=== PATIENT | female | born 1960 | race Caucasian/White ===

== ENCOUNTER 2018-07-30 14:55 | Outpatient (REF) | payer OTHER, SELFPAY ==
--- NOTE | 2018-07-30 14:10 | SKI_PTH ---
PATIENT: Christie Vincnet LOC: [facility] U#:[id number] AGE/SX: 58/F ROOM: RE07/30/[address]: Liz Vogel MD : 1960 BED: DIS: 07/30/2018 SPEC #: [id number] RECD: 07/30/18 17:47 STATUS: SHIRA REQ #: [id number] SELMA: 07/30/18 14:[address]: Liz Vogel DEPT: Surgical Specimen RECD BY: Priscilla Ruiz ENTERED: 07/30/18 17:48 SP TYPE: LOUANN ZEPEDA DR: Mei Schmidt MD, DC Tissues: 1 - SKIN CYST/TAG/DEBRIDEMENT Procedures: SKIN BIOPSY LEVEL 3 Comments: [id number]
== END 2018-07-30 15:15 ==
LOC: LBN 14:55
PROVIDERS: PCP Family Medicine; Visit Provider Surgery
DX: L72.11 Pilar cyst (principal)
CPT/HCPCS: 88304

== ENCOUNTER 2019-04-11 16:54 | Outpatient (REF) | payer OTHER, SELFPAY ==
--- NOTE | 2019-04-11 15:30 | PAPFT_PTH ---
PATIENT: Christie Vincent LOC: N U#:[id number] AGE/SX: 59/F ROOM: RE04/11/[address]: Mei Schmidt MD, DC : 1960 BED: DIS: 04/11/2019 SPEC #: [id number] RECD: 04/12/19 12:56 STATUS: SHIRA REQ #: [id number] SELMA: 04/11/19 15:[address]: Mei Schmidt DEPT: [facility] Cytology RECD BY: Priscilla Ruiz Tissues: 1 - CX/ENDOCX FOR PAP SMEARS Procedures: PAP THIN PREP/UVM Screening HPV DNA PROBE Comments: [id number]
== END 2019-04-11 17:14 ==
LOC: LBN 16:54
PROVIDERS: PCP Family Medicine; Visit Provider Family Medicine
DX: Z12.4 Encounter for screening for malignant neoplasm of cervix (principal)
CPT/HCPCS: 88142; 87624

== ENCOUNTER 2019-05-12 00:32 | Outpatient (CLI) | payer OTHER, SELFPAY ==
--- NOTE | 2019-05-12 07:45 | DI.MAMMO_ITS ---
EXAM: MAMMO SCREENING CLINICAL HISTORY: screening,Z12.39 TECHNIQUE: Mammograms were interpreted according to the usual protocol including computer analysis w [email or web address] CAD system, tomosynthesis and C-view imaging. FINDINGS: The breasts are heterogeneously dense with fairly symmetrical distribution of fibroglandular tissue. No dominant mass or clumped microcalcification is identified in either breast. Current examination is compared with previous examinations including June, and there has been no gross interval change in appearance in comparison with previous studies. IMPRESSION: No specific evidence of malignancy at this time. Routine screening examinations are suggested at year ly intervals due to the family history of breast carcinoma. Category 1. Breast density, category C. BI-RADS Cat 1 - Negative. Breast Density - Category C - Heterogeneously dense.
== END 2019-05-12 00:52 ==
PROVIDERS: PCP Family Medicine; Visit Provider Family Medicine
DX: Z12.31 Encounter for screening mammogram for malignant neoplasm of breast (principal); Z80.3 Family history of malignant neoplasm of breast
CPT/HCPCS: 77063; 77067

== ENCOUNTER 2019-06-06 06:00 | Day surgery (SDC) | payer OTHER, SELFPAY ==
[2019-05-30 10:54] VITALS: BP 140/88; PULSE 91; RESP 16; TEMP 36.1; O2SAT 100
--- NOTE | 2019-06-06 06:38 | W.PM.ENDDOP ---
Date of service: 06/06/19 Time of Service: 07: Endoscopy Report DATE OF PROCEDURE: 06/06/19 PRE-OP DIAGNOSIS: GERD, Colon CAncer Screening POST-OP DIAGNOSIS: other (GAstritis, GAstric polyps, colon polyps) PROCEDURE: 1. EGD with biopsies 2. Colonoscopy with polypectomy SURGEON: Liz Vogel ANESTHESIA: other (General/ ASA 2/ Talita Justino, [employer]) ESTIMATED BLOOD LOSS: 5 PATHOLOGY: other (GAstric bx, Gastric polyp bx, Ge junction bx, transverse colon polyp and descending colon polyp) COMPLICATIONS: None DISPOSITION: same day INDICATIONS: Mrs Vincent is a pleasant 59-year-old female who is here today to discuss a screening colonoscopy as well as a possible upper endoscopy. Her last colonoscopy was in 2009 and was normal. She denies any melena, hematochezia, unintentional weight loss, or changes in bowel habits. She states that she has intermittent diarrhea and constipation which is her normal. She sometimes can have a little bleeding from hemorrhoids but has not had that in a long time. She was diagnosed with reflux a couple years ago and placed on omeprazole 20 mg daily. Over the last 6 months she says her reflux symptoms have increased. She started on ranitidine at nighttime but with ranitidine being recalled she stopped that. She has had no emesis but does feel the acid come up into her throat. She also wonders if her asthma symptoms are due to reflux. Her asthma started at the same time as her reflux. Her asthma is worse in the morning and after eating. She has never had an upper endoscopy. She recently was on doxycycline for a dental issue. PREP: Miralax/Dulcolax PROCEDURE START TIME: :23 PROCEDURE END TIME: 07:59 COLONOSCOPY RETRACTION TIME: 16 minutes FINDINGS: 1- GAstritis and Gastric polyps (benign) 2. Colorectal polyps PROCEDURE DESCRIPTION: After informed consent was obtained the patient was take to the procedure room and placed in a supine position. Monitors were applied and a time out was done. The patients name, date of , procedure type, allergies to medications and metal in their body was reviewed. A bite block was placed and the patient was sedated. Once sedated and comfortable the gastroscope was advanced through the oropharynx which was grossly normal into the esophagus. The proximal and mid-esophagus were normal. In the distal esophagus there was mild inflammation noted. The scope was advanced into the stomach and through the pylorus into the 3rd portion of the duodenum. The duodenum was noted to be normal. The scope was retracted back into the stomach. There was mild to moderate inflammation noted. Biopsies were done to rule out H. pylori. There were no ulcers. The scope was retro-flexed. The cardia and fundus were noted to be normal. There was no hiatal hernia noted. There were many benign appearing polyps in the entire stomach. Random biopsies of a few of them were done. The scope was retracted back into the esophagus and biopsies were done of the GE junction to rule out Beauchamp's. The Z line was regular. The GE junction was at 35 cm. While the patient was still sedated they were placed in a left decubitous position. A rectal exam was done. External exam was normal. Internal exam revealed a normal sphincter tone and no palpable masses. The scope was then introduced and retro-flexed. Small internal hemorrhoids were identified. There were no masses or polyps on retro-flexion. The scope was then advanced to the cecum with some difficulty. The colon was very tortuous. The TI and appendiceal orifice were identified. The prep was good. The scope was then slowly retracted over 16 minutes back into the rectum. Polyps were removed with cold forceps in the transverse colon and descending colon. The polyp in the descending colon was >1 cm in size and flat. The scope was removed and the patient was woken up and taken back to Same day surgery in stable condition. The patient tolerated the procedure well and there were no immediate complications. Follow up: Most likely 3 years for her next colonoscopy.
--- NOTE | 2019-06-06 06:40 | PDOC.DSDIS_ITS ---
Discharge Plan Disposition Patient Disposition: HOME Condition: Good Discharge Details Reason For Visit: Colon Cancer Screening and GERD Attending Provider: Liz Vogel Primary Care Provider: Mei Schmidt Home Meds and New Rx's Prescriptions: New omeprazole 40 mg capsule,delayed release(DR/EC) 40 mg PO DAILY Qty: 30 RF: 0 Continued estradiol [Yuvafem] 10 mcg tablet 10 mcg VG .3 times weekly Qty: 36 RF: 4 albuterol sulfate [ProAir HFA] 90 mcg/actuation HFA aerosol inhaler 1 - 2 puff Inhalation Q4H PRN Qty: 3 RF: 12 Flovent HFA 110 mcg/actuation HFA aerosol inhaler 2 puff Inhalation BID Qty: 3 RF: 12 Shingrix Adjuvant Component-PF Suspension 1 ml IM ONCE Qty: 0.5 RF: 1 spacer for inhaler 1 insert PO PRNQty: 1 RF: 1 acyclovir 5 % ointment 1 applic Topical QID PRN (Reason: viral infection) Qty: 3 RF: 4 ibuprofen 400 MG tablet 400 mg PO PRN PRNRF: 0 Discontinued omeprazole 20 mg capsule,delayed release(DR/EC) 20 mg PO DAILY PRN (Reason: reflux) Qty: 90 RF: 4 Discharge Instructions Instructions: Colorectal Polyps (DC), Diet for Stomach Ulcers and Gastritis (GEN), Gastritis (DC), Gastric Polyps (DC) Additional Instructions: Findings: Mild to moderate gastritis Multiple benign gastric polyps 2 colorectal polyps Follow up: most likely 3 years for next colonoscopy Medications: Increase Omeprazole to 40 mg for 30 days then back to 20 mg Please call if you develop: fevers >101.5 Nausea or Vomiting Abdominal pain that is not transient DAY SURGERY UNIT POST ENDOSCOPY INSTRUCTIONS 1. Because there will be medication in your system for the next 24 hours, you may feel a little sleepy. Your coordination will be affected. Therefore: a. Do not drive or operate dangerous equipment for 24 hours. b. Do not drink alcohol beverages for 24 hours (not even beer). c. Plan to go home and rest for the day. 2. Generally there are no restrictions on your activity after a day or so has g one by, but you may feel a bit fatigued for a few days. 3 After you arrive home you may have a light meal and return to a normal diet as you can tolerate it without feeling sick to your stomach. 4. After surgery, you may feel pain or discomfort. This should be only transient, but if it persists please contact your doctor. 5. If there are any questions regarding the findings of your procedure, please feel free to contact your doctor. 6. If you are unable to contact your doctor with a problem, contact the hospital at [phone]. 7. Continue all your regular medications unless directed otherwise. I understand the above instructions and have no questions. Signature of Patient or Responsible Adult Escort Date/Time Name of Responsible Adult Escort Signature of Nurse Date/Time Activity:: Activity as Tolerated Diet:: As Tolerated Discharge Orders Discharge Orders: Discharge Order (Routine); Ordered 06/06/19 Ordered By: Liz Vogel DS: Diagnosis Discharge Diagnosis (1) Colorectal polyps: Status: Acute (2) Gastritis: Status: Acute (3) Multiple gastric polyps: Status: Acute
[2019-06-06] MEDS: Lactated Ringers 1,000 ML 80 ML IV (06:55)
--- NOTE | 2019-06-06 07:25 | STOM_PTH ---
PATIENT: Christie Vincent LOC: [facility] U#:[id number] AGE/SX: 59/F ROOM: RE06/06/[address]: Liz Vogel MD : 1960 BED: DIS: 06/06/2019 SPEC #: [id number] RECD: 06/06/19 10:59 STATUS: SHIRA RE #: [id number] SELMA: 06/06/19 07:[address]: Liz Vogel DEPT: Surgical Specimen RECD BY: Priscilla Ruiz ENTERED: 06/06/19 11:01 SP TYPE: STOMACH OTHR DR: Mei Schmidt MD, DC Tissues: 1 - STOMACH BIOPSY 2 - STOMACH BIOPSY 3 - ESOPHAGUS BIOPSY 4 - BIOPSY BOWEL 5 - BIOPSY BOWEL Procedures: GROSS AND MICRO LEVEL 4 Comments: [id number]
[2019-06-06 08:30] VITALS: BP 136/73; PULSE 84; RESP 16; TEMP 36.1; O2SAT 97
== END 2019-06-06 09:13 | disposition home or self-care (01) ==
PROVIDERS: PCP Family Medicine; Visit Provider Surgery
PROC: (CPT 45380; principal; 2019-06-06 07:30)
DX: Z12.11 Encounter for screening for malignant neoplasm of colon (principal); D12.3 Benign neoplasm of transverse colon; D12.4 Benign neoplasm of descending colon; K64.0 First degree hemorrhoids; K63.89 Other specified diseases of intestine; K21.9 Gastro-esophageal reflux disease without esophagitis; K29.70 Gastritis, unspecified, without bleeding; K31.7 Polyp of stomach and duodenum; J45.909 Unspecified asthma, uncomplicated
CPT/HCPCS: 45380; 43239; 88305; J2405; J2704

== ENCOUNTER 2020-04-25 03:40 | Outpatient (CLI) | payer OTHER, SELFPAY ==
[2020-04-25 07:40] LABS: HCT 44.1 % (36.0-46.0); HGB 14.8 g/dL (11.2-15.7); MCH 30.8 pg (27.0-33.0); MCHC 33.6 % (32.0-36.0); MCV 91.9 fL (80-95); MPV 10.5 fL (8.0-11.0); Platelet Count 219 10^3/uL (130-400); RDW 12.3 % (11.7-14.6); RDW-SD 41.9 fL; WBC 5.81 10^3/uL (4.4-10.8)
[2020-04-25 08:15] LABS: Hemoglobin A1C 5.6 % (<5.7)
[2020-04-25 08:31] LABS: Iron 114 ug/dL (50-170)
[2020-04-25 08:47] LABS: ALT 39 U/L (14-59); AST 27 U/L (15-37); Albumin 3.7 g/dL (3.4-5.0); Alkaline Phosphatase 108 U/L (46-116); Anion Gap 5.4 mmol/L (3-11); BUN 19 mg/dL (7-18); Bilirubin, Total 0.5 mg/dL (0.2-1.0); CO2 29.6 mmol/L (21.0-32.0); Calcium 8.5 mg/dL (8.5-10.1); Chloride 107 mmol/L (98-107); Estimated GFR 56.37 (mL/min/1.73m2); Ferritin 94 ng/mL (8-252); Glucose 98 mg/dL (74-106); Potassium 4.2 mmol/L (3.5-5.1); Sodium 142 mmol/L (136-145); TSH (W/Ref FT4) 1.76 uIU/mL (0.36-3.74)
== END 2020-04-25 04:00 ==
PROVIDERS: PCP Family Medicine; Visit Provider Family Medicine
DX: Z00.00 Encounter for general adult medical examination without abnormal findings (principal); E11.9 Type 2 diabetes mellitus without complications; K29.70 Gastritis, unspecified, without bleeding; K31.7 Polyp of stomach and duodenum; M85.80 Other specified disorders of bone density and structure, unspecified site
CPT/HCPCS: 36415; 80053; 82306; 85027; 82728; 83036; 83540; 84443

== ENCOUNTER 2020-05-29 01:46 | Outpatient (CLI) | payer OTHER, SELFPAY ==
--- NOTE | 2020-05-29 12:47 | DI.MAMMO_ITS ---
EXAM: MG MAMMO SCREENING CLINICAL HISTORY: screening,Z12.39 TECHNIQUE: Bilateral full field digital CC and MLO mammographic images were obtained with 3D tomosyn thesis and utilizing computer aided detection (CAD). COMPARISON: Available for comparison. FINDINGS: Masses/Architectural Distortion: None seen. Microcalcifications: No suspicious pleomorphic-type are seen. Skin Thickening/Nipple Retraction: None. IMPRESSION: 1. No significant interval change with no specific features of malignancy noted. 2. Unless there is more urgent need, screening mammography is recommended, as per [employer] guidelines. BI-RADS Category 1 - Negative Breast Density - Category C - Heterogeneously dense Breast density category C or D implies that the patient has dense breast tissue. Dense breast tissue is very common and is not abnormal but dense breast tissue can make it harder to find cancer on a ma mmogram. Also, dense breast tissue may increase their breast cancer risk. This information about the result of the mammogram report was provided to the patient to raise their awareness. Use this report when you speak with the patient about their risks for breast cancer, which includes their family hist ory. At that time, you may recommend for more screening tests (Ultrasound or MRI) as they might be us eful based on their risk. A negative radiographic report should not delay biopsy if a dominant or clinically suspicious mass is present. Up to ten percent of cancers are not identified on mammography. A negative report may reinforce clinical impression. Adenosis and dense breasts may obscure an underlying neoplasm. False positive reports average 6 to 10%. Patient will receive a letter notifying them of these results.
== END 2020-05-29 02:06 ==
PROVIDERS: PCP Family Medicine; Visit Provider Family Medicine
DX: Z12.31 Encounter for screening mammogram for malignant neoplasm of breast (principal)
CPT/HCPCS: 77063; 77067

== ENCOUNTER 2022-06-04 03:22 | Outpatient (CLI) | payer OTHER, SELFPAY ==
[2022-06-04 16:50] LABS: Hemoglobin A1C 5.5 % (<5.7)
[2022-06-04 17:28] LABS: Vitamin D 25 Total 16.9 ng/mL (30-100)
[2022-06-04 17:31] LABS: ALT 27 U/L (14-59); AST 24 U/L (15-37); Alkaline Phosphatase 121 U/L (46-116); Anion Gap 6.6 mmol/L (3-11); BUN 16 mg/dL (7-18); Bilirubin, Total 0.4 mg/dL (0.2-1.0); CO2 31.4 mmol/L (21.0-32.0); Chloride 100 mmol/L (98-107); Glucose 112 mg/dL (74-106); Potassium 3.2 mmol/L (3.5-5.1); Sodium 138 mmol/L (136-145); Vitamin B12 858 pg/mL (193-986)
== END 2022-06-04 03:23 | disposition home or self-care (01) ==
PROVIDERS: PCP Family Medicine; Visit Provider Family Medicine
DX: Z00.00 Encounter for general adult medical examination without abnormal findings (principal); E55.9 Vitamin D deficiency, unspecified; M85.80 Other specified disorders of bone density and structure, unspecified site; E11.9 Type 2 diabetes mellitus without complications
CPT/HCPCS: 36415; 80053; 82306; 82607; 83036; 84443

== ENCOUNTER 2022-07-18 00:56 | Outpatient (CLI) | payer OTHER, SELFPAY ==
--- NOTE | 2022-07-18 08:00 | DI.MAMMO_ITS ---
Exam(s) MAMMO SCREENING EXAM: MAMMO SCREENING CLINICAL HISTORY: screening,Z12.39,ANNUAL EXAM,Z00.00 TECHNIQUE: Mammograms were interpreted according to the usual protocol including computer analysis w [employer] CAD system, tomosynthesis and C-view imaging. COMPARISON: 2012 through 2020 FINDINGS: The breasts are composed of heterogeneously dense fibroglandular densities, Breast Density category C . No suspicious masses or suspicious microcalcifications are seen. No skin thickening or abnormal axillary lymph nodes are seen. There has been no significant change from prior exams. IMPRESSION: BI-RADS Category 1, Negative mammogram. Yearly screening mammography is recommended. Breast Density Category C, heterogeneously Dense. The mammogram demonstrates the patient's breast tissue is dense. Dense breast tissue is very common a nd is not abnormal but dense breast tissue can make it harder to find cancer on a mammogram. Also, de nse breast tissue may increase breast cancer risk. This information about the result of the mammogram report was provided to the patient to raise their awareness. Use this report when you speak with the patient about their risks for breast cancer, which includes their family history. At that time, you may recommend additional screening tests (Ultrasound or MRI) as they might be useful based on their r isk. A negative radiographic report should not delay biopsy if a dominant or clinically suspicious mass is present. Up to ten percent of cancers are not identified on mammography. A negative report may reinforce clinical impression. Adenosis and dense breasts may obscure an underlying neoplasm. False positive reports average 6 to 10%.
--- NOTE | 2022-07-18 08:00 | DI.DEXA_ITS ---
Exam(s) XR DEXA BONE DENSITY W/WO MARGRET EXAM: XR DEXA BONE DENSITY W/WO MARGRET CLINICAL HISTORY: SCREENING FOR OSTEOPOROSIS, ANNUAL EXAM,Z00.00 TECHNIQUE: 1SDK C densitometer analysis of left hip, lumbar spine and left forearm. COMPARISON: 2013 FINDINGS: Lateral view of the thoracic and lumbar spine shows no evidence of compression fractures. Bone mineral density measurements of the lumbar spine correspond to a total T-score of -1.8, in the osteopenic range, not significantly changed from prior. Bone mineral density measurements of the left hip correspond to a total T-score of -2.3. The femora l neck T-score is -2.6, consistent with osteoporosis. 4.0 percent decrease from prior.. The left forearm bone mineral density measurements correspond to a T-score of the distal 3rd of -2.3 , in the osteopenic range, this represents a 10.5 percent decrease compared with 2013.. IMPRESSION: Osteopenia of the lumbar spine and forearm. Mild osteoporosis of the hip. Decrease in bone density compared with priors.
== END 2022-07-18 01:16 ==
LOC: DI 00:57
PROVIDERS: PCP Family Medicine; Visit Provider Family Medicine
DX: Z12.31 Encounter for screening mammogram for malignant neoplasm of breast (principal); Z00.00 Encounter for general adult medical examination without abnormal findings; R92.8 Other abnormal and inconclusive findings on diagnostic imaging of breast; Z13.820 Encounter for screening for osteoporosis; M81.0 Age-related osteoporosis without current pathological fracture; M85.89 Other specified disorders of bone density and structure, multiple sites
CPT/HCPCS: 77063; 77067; 77080

== ENCOUNTER 2023-02-12 12:52 | Outpatient (CLI) | payer OTHER, SELFPAY ==
[2023-02-12 13:25] LABS: ALT 39 U/L (14-59); AST 36 U/L (15-37); Albumin 3.8 g/dL (3.4-5.0); Alkaline Phosphatase 100 U/L (46-116); Anion Gap 10.4 mmol/L (3-11); BUN 15 mg/dL (7-18); Bilirubin, Total 0.5 mg/dL (0.2-1.0); CO2 26.6 mmol/L (21.0-32.0); CREATININE 0.9 mg/dL (0.55-1.02); Calcium 9.7 mg/dL (8.5-10.1); Chloride 100 mmol/L (98-107); Estimated GFR 71.83 (mL/min/1.73m2); Glucose 92 mg/dL (74-106); Potassium 3.5 mmol/L (3.5-5.1); Sodium 137 mmol/L (136-145); Total Protein 7.9 g/dL (6.4-8.2)
[2023-02-12 13:47] LABS: Vitamin D 25 Total 17.1 ng/mL (30-100)
== END 2023-02-12 12:53 | disposition home or self-care (01) ==
LOC: LBO 12:53
PROVIDERS: PCP Family Medicine; Visit Provider Family Medicine
DX: E87.6 Hypokalemia (principal); E55.9 Vitamin D deficiency, unspecified
CPT/HCPCS: 36415; 80053; 82306

== ENCOUNTER 2023-05-27 13:24 | Outpatient (REF) | payer OTHER, SELFPAY ==
[2023-05-27 13:52] LABS: Bilirubin Negative (Negative); Blood Moderate (Negative); Clarity Clear (Clear); Glucose Negative (Negative); Ketones Negative (Negative); Leukocyte Esterase Small (Negative); Nitrite Positive (Negative); Urobilinogen 0.2 mg/dL (Up to 0.2); pH 6.5 (5-8)
[2023-05-27 13:58] LABS: Bacteria Few HPF (Negative); C & S Indicated? Yes; Casts Negative LPF (Negative); Crystals Negative HPF (Negative); Epithelial Cells Rare HPF (Negative); Mucus Negative (Negative); RBC 20-50 HPF (0-2)
== END 2023-05-27 13:25 | disposition home or self-care (01) ==
LOC: LBN 13:24
PROVIDERS: PCP Family Medicine; Visit Provider Family Medicine
DX: R30.0 Dysuria (principal)
CPT/HCPCS: 87077; 81003; 81015; 87086; 87186

== ENCOUNTER 2023-06-26 10:02 | Outpatient (REF) | payer OTHER, SELFPAY ==
--- NOTE | 2023-06-26 09:30 | PAPFT_PTH ---
PATIENT: Christie Vincent LOC: [facility] U#:[id number] AGE/SX: 63/F ROOM: RE06/26/[address]: DELTA Ferguson : 1960 BED: DIS: 06/26/2023 SPEC #: [id number] RECD: 06/26/23 12:57 STATUS: SHIRA REVivienne #: [id number] SELMA: 06/26/23 09:[address]: Tonya Martínez DEPT: [facility] Cytology RECD BY: Priscilla uRiz ENTERED: 06/26/23 12:58 SP TYPE: PAPFT OTHR DR: Mei Schmidt MD, DC Tissues: 1 - CX/ENDOCX FOR PAP SMEARS Procedures: PAP THIN PREP/UVM Screening HPV DNA PROBE Comments: [id number]
== END 2023-06-26 10:03 | disposition home or self-care (01) ==
LOC: LBN 10:02
PROVIDERS: PCP Family Medicine; Visit Provider Nurse Practitioner Family
DX: B96.20 Unspecified Escherichia coli [E. coli] as the cause of diseases classified elsewhere (principal); Z12.4 Encounter for screening for malignant neoplasm of cervix; Z11.51 Encounter for screening for human papillomavirus (HPV); N76.0 Acute vaginitis
CPT/HCPCS: 88142; 87480; 87510; 87624; 87660

== ENCOUNTER 2023-07-06 11:49 | Outpatient (REF) | payer OTHER, SELFPAY ==
[2023-07-06 13:29] LABS: Bilirubin Negative (Negative); Blood Negative (Negative); Clarity Clear (Clear); Glucose Negative (Negative); Ketones Negative (Negative); Leukocyte Esterase Small (Negative); Nitrite Negative (Negative); Specific Gravity <= 1.005 (1.005-1.025); Urobilinogen 0.2 mg/dL (Up to 0.2)
[2023-07-06 13:58] LABS: Bacteria Moderate HPF (Negative); Epithelial Cells Rare HPF (Negative); Other Cells Rare Renal (Negative); RBC 0-2 HPF (0-2)
[2023-07-06 13:59] LABS: C & S Indicated? Yes
== END 2023-07-06 11:50 | disposition home or self-care (01) ==
LOC: LBN 11:49
PROVIDERS: PCP Family Medicine; Visit Provider Family Medicine
DX: R30.0 Dysuria (principal)
CPT/HCPCS: 87077; 81003; 81015; 87086; 87186

== ENCOUNTER → 2023-07-29 04:28 | Outpatient (CLI) | payer OTHER, SELFPAY ==
--- NOTE | 2023-07-29 07:39 | DI.MAMMO_ITS ---
Exam(s) MAMMO SCREENING EXAM: MAMMO SCREENING CLINICAL HISTORY: screening,z12.39 TECHNIQUE: Mammograms were interpreted according to the usual protocol including computer analysis w [employer] CAD system, tomosynthesis and C-view imaging. COMPARISON: 2013 through 2022 FINDINGS: The breasts are composed of heterogeneously dense fibroglandular densities, Breast Density category C . No suspicious masses or suspicious microcalcifications are seen. No skin thickening or abnormal axillary lymph nodes are seen. There has been no significant change from prior exams. IMPRESSION: BI-RADS Category 1, Negative mammogram. Yearly screening mammography is recommended. Breast Density Category C, heterogeneously Dense. The mammogram demonstrates the patient's breast tissue is dense. Dense breast tissue is very common a nd is not abnormal but dense breast tissue can make it harder to find cancer on a mammogram. Also, de nse breast tissue may increase breast cancer risk. This information about the result of the mammogram report was provided to the patient to raise their awareness. Use this report when you speak with the patient about their risks for breast cancer, which includes their family history. At that time, you may recommend additional screening tests (Ultrasound or MRI) as they might be useful based on their r isk. A negative radiographic report should not delay biopsy if a dominant or clinically suspicious mass is present. Up to ten percent of cancers are not identified on mammography. A negative report may reinforce clinical impression. Adenosis and dense breasts may obscure an underlying neoplasm. False positive reports average 6 to 10%.
== END ==
PROVIDERS: PCP Family Medicine; Visit Provider Family Medicine
DX: Z12.31 Encounter for screening mammogram for malignant neoplasm of breast (principal)
CPT/HCPCS: 77063; 77067

== ENCOUNTER 2023-10-05 15:10 | Outpatient (CLI) | payer OTHER, SELFPAY ==
[2023-10-05 14:32] LABS: Abs Immature Grans 0.01 10^3/uL (0.0-0.06); Absolute Basophil Count 0.03 10^3/uL (0.0-0.2); Absolute Eosinophil Count 0.05 10^3/uL (0.0-0.7); Absolute Lymphocyte Count 1.69 10^3/uL (1.2-3.4); Absolute Monocyte Count 0.29 10^3/uL (0.1-0.8); Absolute Neutrophil Count 3.37 10^3/uL (1.2-6.7); Basophils % 0.6 %; Eosinophils % 0.9 %; HCT 41.8 % (36.0-46.0); HGB 14.5 g/dL (11.2-15.7); Immature Grans % 0.2 %; Lymphocytes % 31.1 %; MCH 31.9 pg (27.0-33.0); MCHC 34.7 % (32.0-36.0); MCV 92 fL (80-95); MPV 11.7 fL (8.0-11.0); Monocytes % 5.3 %; Neutrophils % 61.9 %; Platelet Count 252 10^3/uL (130-400); RBC 4.54 10^6/uL (3.93-5.22); RDW 12.2 % (11.7-14.6); RDW-SD 41.1 fL; WBC 5.44 10^3/uL (4.4-10.8)
[2023-10-05 15:54] LABS: Ferritin 176 ng/mL (8-252); TSH 1.42 uIU/Ml (0.36-3.74)
[2023-10-05 17:02] LABS: Vitamin D 25 Total 35.6 ng/mL (30-100)
== END 2023-10-05 15:11 | disposition home or self-care (01) ==
LOC: LBO 15:11
PROVIDERS: PCP Family Medicine; Visit Provider Dermatology
DX: L65.9 Nonscarring hair loss, unspecified (principal); E55.9 Vitamin D deficiency, unspecified
CPT/HCPCS: 36415; 82306; 82728; 84443; 85025

== ENCOUNTER 2024-05-02 10:18 | Outpatient (CLI) | payer OTHER, SELFPAY ==
[2024-05-02 08:14] LABS: ALT 27 U/L (14-59); AST 20 U/L (15-37); Albumin 3.9 g/dL (3.4-5.0); Alkaline Phosphatase 93 U/L (46-116); Anion Gap 7.2 mmol/L (3-11); BUN 17 mg/dL (7-18); Bilirubin, Total 0.61 mg/dL (0.2-1.0); CO2 30.8 mmol/L (21.0-32.0); CREATININE 1.1 mg/dL (0.55-1.02); Calcium 9.3 mg/dL (8.5-10.1); Calculated LDL 131 mg/dL (<100); Chloride 103 mmol/L (98-107); Cholesterol 212 mg/dL (<200); Estimated GFR 55.76 (mL/min/1.73m2); Glucose 97 mg/dL (74-106); HDL Cholesterol 73 mg/dL (40-60); Potassium 3.7 mmol/L (3.5-5.1); Sodium 141 mmol/L (136-145); Total Protein 7.5 g/dL (6.4-8.2); Triglyceride 40 mg/dL (<150); Vitamin D 25 Total 22.4 ng/mL (30-100)
== END 2024-05-02 10:19 | disposition home or self-care (01) ==
LOC: LBO 10:18
PROVIDERS: PCP Family Medicine; Visit Provider Family Medicine
DX: I10 Essential (primary) hypertension (principal); Z00.00 Encounter for general adult medical examination without abnormal findings; E55.9 Vitamin D deficiency, unspecified
CPT/HCPCS: 36415; 80053; 80061; 82306

== ENCOUNTER 2024-10-19 12:47 | Outpatient (CLI) | payer OTHER, SELFPAY ==
[2024-10-19 14:30] LABS: ALT 31 U/L (14-59); AST 23 U/L (15-37); Alkaline Phosphatase 100 U/L (46-116); Anion Gap 5.2 mmol/L (3-11); BUN 15 mg/dL (7-18); Bilirubin, Total 0.5 mg/dL (0.2-1.0); CO2 31.8 mmol/L (21.0-32.0); CREATININE 0.8 mg/dL (0.55-1.02); Calcium 8.9 mg/dL (8.5-10.1); Chloride 101 mmol/L (98-107); Estimated GFR 81.72 (mL/min/1.73m2); Glucose 90 mg/dL (74-106); Potassium 3.8 mmol/L (3.5-5.1); Sodium 138 mmol/L (136-145); Total Protein 7.2 g/dL (6.4-8.2); Vitamin B12 544 pg/mL (193-986)
== END 2024-10-19 12:48 | disposition home or self-care (01) ==
LOC: LBO 12:48
PROVIDERS: PCP Family Medicine; Visit Provider Family Medicine
DX: Z00.00 Encounter for general adult medical examination without abnormal findings (principal); I10 Essential (primary) hypertension
CPT/HCPCS: 36415; 80053; 82607

== ENCOUNTER 2024-10-21 00:27 | Outpatient (CLI) | payer OTHER, SELFPAY ==
--- NOTE | 2024-10-21 07:45 | DI.DEXA_ITS ---
Exam(s) XR DEXA BONE DENSITY W/WO MARGRET EXAM: XR DEXA BONE DENSITY W/WO MARGRET CLINICAL HISTORY: postmenopausal status,z78.0 TECHNIQUE: Routine DEXA evaluation of the lumbar spine, hip, or forearm. COMPARISON: CR XR DEXA BONE DENSITY W/WO MARGRET from 07/18/2022 FINDINGS: Performed on a [employer] unit. Lateral image: No compression fracture evident. Lumbar Spine total T-score: -2.4. Prior reading in June 2022 was -1.8. Hip total T-score:Minus 2.9 which is in osteoporosis range. Prior reading in 2022 was -2.3 Independent reading at the level of the femoral neck yields T-score of -2.8 which is also in osteopo rosis range. Forearm total T-score: -1.8 which is in osteopenia range. Prior reading in 2022 was -2.3. IMPRESSION: Bone mineral density measures in the osteoporosis range for the hip. Fracture risk is high. Bone mi neral density is in the osteopenia range for the lumbar spine and forearm and fracture risk at these levels is moderate. Note: Any spine fracture indicates 5x risk for subsequent spine fracture and 2x risk for subsequent h ip fracture. World Health Organization criteria for BMD interpretation classify patients: Normal...... T- Score at or above -1.0 Osteopenic... T- Score between -1.0 and -2.5 Osteoporosis... T-Score at or below -2.5
--- NOTE | 2024-10-21 07:45 | DI.MAMMO_ITS ---
Exam(s) MAMMO SCREENING EXAM: MAMMO SCREENING CLINICAL HISTORY: screening,z12.39. TECHNIQUE: Bilateral full field digital CC and MLO mammographic images were obtained with 3D tomosyn thesis and utilizing computer aided detection (CAD). COMPARISON: Prior mammograms were reviewed. FINDINGS: The fibroglandular tissue is again noted be moderately dense, this somewhat decreasing the sensitivit y of the mammogram for finding hidden underlying lesions. There are no new obvious spiculated masses nor new malignant appearing microcalcification groups. There is no significant architectural distortion nor skin thickening-retraction. IMPRESSION: No radiographic evidence of malignancy. BI-RADS Category 1 - Negative Breast Density - Category C - The breast are heterogeneously dense, which may obscure small masses. Breast density Category C or D implies that the patient has dense breast tissue. Dense breast tissue can make it harder to find cancer on a mammogram. Dense breast tissue is also associated with an incr eased risk of breast cancer. This information about the result of the mammogram report was provided to the patient to raise their awareness. Use this report when you speak with the patient about their risks for breast cancer, which includes their family history. At that time, you may recommend additional screening tests (Ultrasoun d or MRI) as these tests may add significant information. A negative radiographic report should not delay biopsy if a dominant or clinically suspicious mass is present. Up to ten percent of cancers are not identified on mammography. A negative report may reinforce clinical impression. Adenosis and dense breasts may obscure an underlying neoplasm. False positive reports average 6 to 10%. Patient will receive a letter notifying them of these results.
== END 2024-10-21 00:47 ==
LOC: DI 00:27
PROVIDERS: PCP Family Medicine; Visit Provider Family Medicine
DX: Z78.0 Asymptomatic menopausal state (principal); Z12.31 Encounter for screening mammogram for malignant neoplasm of breast; Z13.820 Encounter for screening for osteoporosis
CPT/HCPCS: 77063; 77067; 77080

== ENCOUNTER 2025-01-27 06:09 | Day surgery (SDC) | payer OTHER, SELFPAY ==
--- NOTE | 2025-01-26 13:39 | W.PM.DSUDISC ---
Date of service: 01/26/25 Discharge Plan Disposition Patient Disposition: Home Condition: Good Discharge Details Reason For Visit: Screening colonoscopy Attending Provider: Kvng Bloom Primary Care Provider: Mei Schmidt Home Meds and New Rx's Prescriptions: Continued estradiol [Yuvafem] 10 mcg tablet 10 mcg VG .3 times weekly Qty: 36 4RF montelukast [Singulair] 10 mg tablet 10 mg PO DAILY Qty: 90 4RF Zepbound 2.5 mg/0.5 mL pen injector 2.5 mg subcut QWEEK Qty: 8 4RF Rx Instructions: for 4 weeks acyclovir 5 % ointment 1 applic Topical QID PRN (Reason: viral infection) Qty: 30 4RF fluticasone propionate 110 mcg/actuation HFA aerosol inhaler 2 puff Inhalation BID Qty: 3 12RF spacer for inhaler 1 insert PO PRNQty: 1 1RF albuterol sulfate [ProAir HFA] 90 mcg/actuation HFA aerosol inhaler 1 - 2 puff Inhalation Q4H PRN Qty: 3 12RF losartan-hydrochlorothiazide 50-12.5 mg tablet 1 tab PO DAILY Qty: 90 5RF Flonase Sensimist 27.5 mcg/actuation spray,suspension 2 spray intranasal DAILY Qty: 5.9 0RF Rx Instructions: into each nostril pantoprazole [Protonix] 40 mg tablet,delayed release (DR/EC) 40 mg PO DAILY Qty: 90 6RF ergocalciferol (vitamin D2) 1,250 mcg (50,000 unit) capsule 50,000 unit PO QWEEK Qty: 13 4RF ibuprofen 400 MG tablet 400 mg PO PRN PRN Discharge Instructions Instructions: Hiatal hernia, Colon polyps Additional Instructions: Karrie, I hope you feel well after the procedure and have a great day today. Everything went very smoothly. With regards to your EGD, there is a tiny bit of irregularity where your esophagus connects down onto your stomach, it is consistent with basic gastroesophageal reflux. I did do some biopsies of this to rule out Beauchamp's, but have a low index of suspicion that this is anything to worry about. As you mentioned beforehand, he also have gastric polyps. They are all restricted to an area that is generally considered safe. He also have a hiatal hernia. These are typically graded 1 through 4 based on their size. I would estimate years to be a grade 3. As you probably know, there is an operation to fix hiatal hernias. I be more than happy to refer you over to Dr. Fairbanks, or down to [facility] if you have an interest in hearing their opinion. The only reason I mention in particular, is that a Gilson fundoplication is typically performed as part of the hiatal hernia repair. And the fundoplication can be an effective way to reduce reflux symptoms. If you feel that the PPIs are really not enough to take care of it, it would be worth considering surgery as an effort to get off of PPI therapy. Your colonoscopy also went very smoothly. Your prep was outstanding. I did see 1 area that might be a polyp today. This is extremely small, and honestly the features of it look more along the lines of a hyperplastic polyp, or maybe even just normal tissue. I did remove this today, and I will send this to the pathologist for them to review. The pathology results have been running about a week, but once I get that information I will give you a call. If you need anything or have any questions in the meantime, please call me at any point. [phone] 1. If tolerated, consume a soft, low fiber diet for 1-2 days. 2[address] Do not drive, drink alcohol, operate machinery, make critical decisions, or do activities that require coordination or balance for 24 hours. 3. Because air was put into your colon during the procedure, expelling air from your rectum (passing gas or farting) is normal. 4. You may not have a bowel movement for 1-3 days because of the colonoscopy prep. This is normal. 5. You may experience a sore throat for 24 to 48 hours. You may use throat lozenges or gargle with warm salt water to relieve the discomfort. 6. Because air was put into your stomach during the procedure, you may experience some belching. 7. Go directly to the emergency room if you notice any of the following: Develop chills (warm to touch), or if you have a thermometer and your temperature is above 101 Difficulty breathing or difficultly swallowing Persistent vomiting Severe abdominal pain, other than gas cramps Severe chest pain Black, tarry stools Any bleeding ? exceeding one tablespoon 8. Call your physician if the site where your intravenous was started becomes red, swollen, painful, and warm to touch. 9. Your physician has reviewed your pre-procedure medications. Please continue to take those medications as previously ordered. You will be given specific information/education regarding any changes to your medications before leaving. Stand Alone Forms: Anesthesia Discharge Jose Carlos Mckeon (DSU) Activity:: Activity as Tolerated Diet:: As Tolerated Discharge Orders Discharge Orders: Discharge Order (Routine); Ordered 01/26/25 Ordered By: Kvng Bloom DS: Diagnosis Discharge Diagnosis (1) Encounter for screening colonoscopy: Status: Acute Asessment and Plan: Follow-up on polypectomy results
--- NOTE | 2025-01-26 13:41 | W.COLOREPORT ---
Date of service: 01/27/25 Time of Service: 08:21 Colonoscopy Report Date of procedure: 01/27/25 Pre-op diagnosis general: EGD and screening colonoscopy Procedure: EGD with polypectomy and biopsies, colonoscopy with polypectomy Surgeon: Kvng Bloom Anesthesia Type: General:No Airway Estimated blood loss (mL): 10 Pathology: other (Gastric polyps x 2, nondirected biopsies of the gastric antrum and body to rule out Helicobacter pylori, biopsies of GE junction; 0.25 cm colon polyp at 35 cm) Complications: None Disposition: same day Indications: Karrie is a 64-year-old woman with longstanding history of gastroesophageal reflux disease, and in need of a screening colonoscopy Prep: Miralax/Dulcolax Procedure Start Time: 07:36 Procedure End Time: 08:03 Retraction Time: 8 Findings: Fundic land polyps, grade 3 hiatal hernia; 0.25 cm flat colon polyp at 35 cm Procedure Description: After the initiation of anesthesia, and with the assistance of a bite block, I advanced a standard gastroscope through the mouth past the hypopharynx and into the esophagus.? Under the direct vision of the scope, I advanced down the esophagus towards the stomach. The upper, mid, and lower esophagus were all normal and healthy appearing. There is a tiny bit of irregularity at the Z-line measuring less than 1 cm. The GE junction is at 34 cm beyond the incisors. Narrowband imaging was used to assist with the analysis here. Clinical features are not really consistent with Beauchamp's esophagus, but I did perform cold forceps biopsies of this given the longstanding history of gastroesophageal reflux disease. I advanced down into the stomach with ease. I performed retroflexion. There is a grade 3 hiatal hernia. There are a number of fundic land polyps. Narrowband imaging was used to examine these as well. Two of the polyps appeared close to 1 cm in size, and these were removed with cold snare polypectomy with minimal bleeding. Otherwise, I saw no signs of significant gastritis. There were no signs of any polyps within the antrum. There was mild erythema of the antrum. The duodenum was totally normal. I brought the camera back up into the stomach and performed some nondirected biopsies of the antrum and body to rule out Helicobacter pylori. The stomach was then emptied, and the camera was removed. We then rolled Karrie into the left lateral decubitus position. Care was taken to pad her and support her appropriately. I began by performing an external anorectal exam.? Perineum and skin were normal, as was the anal verge.? This was normal.? Next, I performed a digital rectal exam.? I did not appreciate any abnormal findings.? Next, I advanced a colonoscope into the rectal vault.? I performed retroflexion.? This appeared normal.? Using irrigation, I then advanced the colonoscope beyond the rectal folds and into the sigmoid colon before advancing towards the cecum.? The quality of the prep was outstanding.? The scope was noted to be in the cecum by identification of the ileocecal valve and appendiceal orifice.? I then began withdrawing the colonoscope using repeated irrigation as necessary for full evaluation of the colonic mucosa. Around 35 cm from the anal verge was a small area of flattened polypoid appearing tissue. Narrowband imaging was used for this. Generally, it appeared consistent with a hyperplastic polyp, but to be safe, I did perform cold forcep polypectomy here. There was no significant bleeding. Once the scope was withdrawn to the level of the rectum, great care was taken to examine portions of the rectal folds.? Finally, the scope was withdrawn and the patient was brought to the same-day surgery recovery unit as the anesthetic wore off. ?The findings and instructions were shared with the patient prior to discharge. Stockholm Bowel Prep Stockholm Bowel Prep Right Colon: 3 Left Colon: 3 Transverse Colon: 3 Total Score: 9
[2025-01-27 06:15] VITALS: BP 132/66; PULSE 83; RESP 18; TEMP 36.5; O2SAT 100
[2025-01-27] MEDS: Lactated Ringers 1,000 ML 80 ML IV (06:54)
--- NOTE | 2025-01-27 07:00 | ANES.PREOP_ITS ---
General Info Date of Service Date Performed: 01/27/25 Height: 5 ft 3.5 in Weight: 61.054 kg Body Mass Index (BMI): 23.4 Surgical Procedure: Operation Date: 01/27/25 07:35 Proposed Procedure Side Surgeon p Colonoscopy/Gastroscopy Kvng Bloom MD Actual Procedure Side Surgeon p Colonoscopy/Gastroscopy Not Applicable Kvng Bloom MD Pre-Op Diagnosis Post-Op Diagnosis Hx of polyps Meds Allergies and Home Medications Allergies Allergy/AdvReac Type Severity Reaction Status Date / Time adhesive tape Allergy Mild RASH FROM Verified 01/27/25 06:31 BANDAIDS Sulfa (Sulfonamide Allergy Mild Hives Verified 01/27/25 06:31 Antibiotics) Home Medication ?Medication ?Instructions ?Recorded ibuprofen 400 mg tablet 400 mg PO PRN PRN 01/30/17 albuterol sulfate 90 mcg/actuation 1 - 2 puff inhalati on Q4H PRN ##3 04/26/21 aerosol inhaler (ProAir HFA) acyclovir 5 % topical ointment 1 applic topical QID WA N viral 08/03/23 infection #30 grams fluticasone propionate 110 2 puff inhalation BID ##3 0 08/03/23 mcg/actuation HFA aerosol inhaler fluticasone furoate 27.5 2 spray intranasal DAILY #5. 9 mL 03/17/24 mcg/actuation nasal spray,suspension (Flonase Sensimist) losartan 50 mg-hydrochlorothiazide 1 tab PO DAILY #90 tabs 03/17/24 12.5 mg tablet pantoprazole 40 mg tablet,delayed 40 mg PO DAILY #90 t abs 03/17/24 release (Protonix) ergocalciferol (vitamin D2) 1,250 50,000 unit PO QWEEK #13 caps 05/02/24 mcg (50,000 unit) capsule estradiol 10 mcg vaginal tablet 10 mcg vaginal .3 time s weekly #36 09/12/24 (Yuvafem) tabs montelukast 10 mg tablet 10 mg PO DAILY #90 tabs 08/24 06/18 (Singulair) tirzepatide (weight loss) 2.5 2.5 mg (0.5 mL) subcut Q WEEK #8 mL 09/12/24 mg/0.5 mL subcutaneous pen injector (Zepbound) Current Visit Medications: Current Medications Generic Name Dose Route Start Last Admin Trade Name Armando PRN Reason Stop Dose Admin Ringer's Solution 1,000 mls @ 80 mls/hr 01/27/25 06:00 01/27/25 06:54 IV 01/27/25 23:59 80 mls/hr INFUSION JOSÉ MIGUEL Administration IV Miscellaneous Supplies 1 each 01/27/25 06:00 Iv Access IV 01/27/25 23:59 DIRECTED JOSÉ MIGUEL Sodium Chloride 0 ml 01/27/25 06:00 Normal Saline Flush 10 Ml Syr IV 01/27/25 23:59 PRN PRN Sodium Chloride 0 ml 01/27/25 06:00 Normal Saline 10 Ml Vial IJ 01/27/25 23:59 DIRECTED PRN Sterile Water 0 ml 01/27/25 06:00 Water,Injection,Sterile 10 Ml Vial IJ 01/27/25 23:59 DIRECTED PRN PFSH Active Problems Active Problems: Problem Status Onset Code Encounter for screening colonoscopy Acute Z12.11 Overweight (BMI 25.0-29.9) Acute E66.3 Dysuria Acute R30.0 Hypokalemia Acute E87.6 Encounter for screening for other viral diseases Acute Z11.59 Vitamin D deficiency Acute E55.9 Annual physical exam Acute Z00.00 Encounter for immunization Acute Z23 Multiple gastric polyps Acute K31.7 Gastritis Acute K29.70 Colorectal polyps Acute K63.5 Ganglion cyst of wrist Acute M67.439 Vitiligo Chronic 12/05/14 L80 Tinnitus Chronic 06/15/17 H93.19 Sensorineural hearing loss, bilateral Chronic 06/15/17 H90.3 Sebaceous cyst Chronic L72.3 Osteopenia Chronic 11/09/12 M85.80 Menopausal syndrome Chronic N95.1 Malignant melanoma of skin Chronic C43.9 Insomnia Chronic 05/22/14 G47.00 Gastroesophageal reflux disease Chronic K21.9 Decreased hearing of right ear Chronic 03/30/17 H91.91 Chronic right sacroiliac joint pain Chronic 08/09/15 M53.3, G89.29 BPV (benign positional vertigo) Chronic H81.10 Asthma Chronic 10/21/13 J45.909 Annual physical exam Acute 12/05/14 Z00.00 Medical History Medical History Perioral dermatitis GERD (gastroesophageal reflux disease) Surgical History Surgical History H/O esophagogastroduodenoscopy (~06/06/19) S/P colonoscopy (~06/06/19) 2009- normal NISHANT REMOVED (~12/2013) Ligation of fallopian tube (~1984) EXCISION, SEBACEOUS CYST 12/30/13 DR. CUI X 2 ON SCALP Cholecystectomy 02/02/17 Biopsy of breast (~1999) lumpectomy on R side Tobacco Smoking/Tobacco Use Status: Never Passive smoking exposure: Yes (For years as a child) Alcohol Alcohol Intake: never Substance Use Substance use: Never Substance use type: does not use Vital Signs and Lab Results Vital Signs Most Recent Vital Signs in EMR: Most Recent Vital Signs Temp Pulse Resp BP Pulse Ox 36.5 C 83 18 132/66 100 01/27/25 06:15 01/27/25 06:15 01/27/25 06:15 01/27/25 06:15 01/27/25 06:15 Anesthesia Assessment and Plan Anesthesia History Personal History: PONV Family History: No Family History of Anesthesia Complications Exercise Tolerance Exercise Tolerance: Metabolic Equivalents>4 Pertinent Negatives Pertinent Negatives: No Symptoms of GERD, No Major Cardiovascular Symptoms or Complaints and No History of CVA/TIA Cardiac & Pulmonary Exam Cardiac Exam: Normal S1/S2 Heart Sounds Pulmonary Exam: Clear Bilateral Breath Sounds Implantable Cardiac Device Does patient have a Pacemaker or an ICD?: No Airway Exam Known Difficult Airway: No Mallampati Class: 2 Mouth Opening: Normal (> 3cm) Thyromental Distance: Greater than 3 cm Neck Range of Motion: Full ROM Neck Circumference: Normal Teeth Condition: Normal Dentition ASA Classification ASA Score: ASA 2 Emergency Case?: No NPO Status NPO Status: NPO Clears >2 hours, Solids >8 hours Anesthesia Plan Resuscitation Status: Full Code Anesthesia Technique: General Anesthesia Airway Planned: Natural Airway Monitors Used: Standard Monitors
[2025-01-27 07:28] VITALS: BMI 23.4
--- NOTE | 2025-01-27 07:40 | BOWEL_PTH ---
PATIENT: Christie Vincent LOC: [facility] U#:[id number] AGE/SX: 64/F ROOM: RE01/27/[address]: Kvng Bloom MD : 1960 BED: DIS: 01/27/2025 SPEC #: [id number] RECD: 01/27/25 09:05 STATUS: SHIRA RE #: [id number] SELMA: 01/27/25 07:[address]: Kvng Bloom DEPT: Surgical Specimen RECD BY: Melanie Herr ENTERED: 01/27/25 09:11 SP TYPE: Bowel OTHR DR: Mei Schmidt MD, DC Tissues: 1 - STOMACH BIOPSY 2 - STOMACH BIOPSY 3 - STOMACH BIOPSY 4 - ESOPHAGUS BIOPSY 5 - BIOPSY BOWEL Procedures: GROSS AND MICRO LEVEL 4 Comments: [id number]
[2025-01-27 08:06] VITALS: BP 116/66; PULSE 95; RESP 16; TEMP 36.2; O2SAT 100
--- NOTE | 2025-01-27 08:12 | W.ANESPOSTOP ---
Postoperative Evaluation Date, Time and Location Date Performed: 01/27/25 Time Performed: 08:12 Patient Location: Day Surgery Unit Vital Signs Most Recent Imported Vital Signs: Most Recent Vital Signs Temp Pulse Resp BP Pulse Ox 36.2 C L 95 H 16 116/66 100 01/27/25 08:06 01/27/25 08:06 01/27/25 08:06 01/27/25 08:06 01/27/25 08:06 Pain Score Most Recent Pain Score: Most Recent Pain Score Pain Level 0 01/27/25 08:06 Assessment Mental Status: Awake (Alert & Oriented to Patient Baseline) Airway and Respiratory Function: Patent airway with normal (patient baseline) respiratory exam Cardiovascular Function: Hemodynamically Stable Hydration Status: Adequately Hydrated Nausea & Vomiting: No Nausea or Vomiting Pain: Pt. Denies Any Pain Peripheral Nerve Block: Patient did not receive a nerve block
[2025-01-27 08:35] VITALS: BP 121/62; PULSE 74; RESP 16; TEMP 36.2; O2SAT 100
== END 2025-01-27 08:50 | disposition home or self-care (01) ==
LOC: SUR 06:09
PROVIDERS: PCP Family Medicine; Visit Provider Surgery
PROC: (CPT 45380; principal; 2025-01-27 07:30)
DX: Z12.11 Encounter for screening for malignant neoplasm of colon (principal); K31.7 Polyp of stomach and duodenum; K21.9 Gastro-esophageal reflux disease without esophagitis; K44.9 Diaphragmatic hernia without obstruction or gangrene; K63.5 Polyp of colon; K31.9 Disease of stomach and duodenum, unspecified
CPT/HCPCS: 45380; 43239; 88305; J2003; J2405; J2704

== ENCOUNTER 2025-03-30 01:39 | Outpatient (CLI) | payer OTHER, SELFPAY | END 2025-03-30 01:40 | disposition home or self-care (01) | LOC: LBO 01:39 | PROVIDERS: PCP Family Medicine; Visit Provider Student in an Organized Health Care Education/Training Program | DX: K44.9 Diaphragmatic hernia without obstruction or gangrene (principal); R11.10 Vomiting, unspecified | CPT/HCPCS: 36415; 82565 ==

== ENCOUNTER → 2025-04-10 01:20 | Outpatient (CLI) | payer OTHER, SELFPAY ==
--- NOTE | 2025-04-10 | DI.NM_ITS ---
APPROVED REPORT Exam: Exercise Treadmill Patient Location: Out-Patient Room/Bed: Stress Nurse: Lance Carrillo RN Ordering Provider:ALVAREZ WALL, Contact Number: BMI: 22.65 Baseline Rhythm: Sinus Rhythm. Comment: Frequent PVC's; Bigeminy. Indications: Hiatal Hernia; Preop High Risk Surgery. Medical History Medical History: GERD; Hx of Esophagogastroduodenoscopy. Cardiac Medications: Acyclovir; Albuterol Sulfate; Estradiol; Flonase; Fluticasone Propionate; Losartan-HCTZ; Montelukast; Pantoprazole; Tirzepatide. Allergies: Adhesive Tape; Sulfas. Cardiac Risk Factors: Family Hx; HTN; Asthma. Previous Cardiac Procedures: None. Pretest Chest Pain Characteristics: None. Exercise History: Sedentary. Physical Disabilities: None. Lung Sounds: Clear bilaterally throughout, anterior and posterior. Heart Sounds: S1 and S2 auscultated. Stress Test Details Test: Exercise stress testing was performed using a Adam protocol. Nuclear Acquisition: Rest Tc-99m/Stress Tc-99m 1 day Rest Isotope: Tc-99m Sestamibi. Dose: 10.0 Date: 04/10/2025 Injection Time: 0845 Stress Isotope: Tc-99m Sestamibi. Dose: 30.0 Date: 04/10/2025 Injection Time: 1004 HR Resting HR Supine: 73 bpm Max Heart Rate (APMHR): 154 bpm Resting HR Standin bpm Target HR (85% APMHR): 131 bpm Max HR Achieved: 136 bpm % of APMHR: 88 Recovery HR: 86 bpm HR response to stress: Normal HR response to stress. BP Resting BP Supine: 112/68 mmHg Resting BP Standin/68 mmHg Max BP: 150/68 mmHg Recovery BP: 112/68 mmHg BP response to stress: Normal blood pressure response to stress. ECG Resting ECG: Sinus Rhythm. Ectopy: Frequent PVC's; Bigeminy. Stress ECG: Sinus Tachycardia. ST Change: No significant ST segment changes noted. Arrhythmia: Frequent PVC's; Bigeminy; Occasional Couplets. Recovery ECG: Sinus Rhythm. Recovery ST Change: No significant ST segment changes noted. Recovery Arrhythmia: Frequent PVC's; Bigeminy; Occasional Couplets. Clinical Reason for Termination: Target HR Achieved. Stress Symptoms: None. Exercise duration: 05 min15 sec Highest Stage Reached: Stage 2: 2.5 mph at 12% grade. Exercise capacity: 7.05 METs Angina Score: None Rate Pressure Product: 69723 Stress ECG Conclusion 1. Resting electrocardiogram showed poor R wave progression 2. Patient exercised on the Adam protocol completed workload of 7 METS 3. Normal heart rate and blood pressure response to exercise. The patient achieved 88% of maximal predicted heart rate for age 4. There was no electrocardiographic evidence of myocardial ischemia 5. Sporadic PVCs were seen 6. See MPI report Stress Test Summary STAGE Time (mins) Speed (mph) Grade (%) HR BP SpO2 SYMPTOMS METS Supine 73 112/68 96 Standing 79 122/68 98 1 3 1.7 10 120 97 4.5 2 6 2.5 12 135 97 7 1 min recovery 117 150/68 98 3 min recovery 85 122/68 99 6 min recovery 86 112/68 98 Pt. performed a NM MPI stress test using the Adam protocol. Pt. stopped the MPI stress test when pt. achieved a heart rate higher than the target heart rate. Pt. was noted to have frequent PVC's, frequent bigeminy, and occasional couplets throughout the stress test. Pt. denied any symptoms throughout the stress test. Pt. was conversing pleasantly with nursing staff upon leaving the Stress Lab. Pt. left ambulatory in no apparent distress. MPI Conclusion Myocardial perfusion is normal. There is no evidence of any ischemia or prior infarction
== END ==
LOC: DI 01:21
PROVIDERS: PCP Family Medicine; Visit Provider Student in an Organized Health Care Education/Training Program
DX: Z01.810 Encounter for preprocedural cardiovascular examination (principal); K44.9 Diaphragmatic hernia without obstruction or gangrene; I49.3 Ventricular premature depolarization
CPT/HCPCS: 78452; 93017

== ENCOUNTER → 2025-04-24 03:51 | Outpatient (CLI) | payer OTHER, SELFPAY ==
[2025-04-24] MEDS: Barium Sulfate 2% W/V-Berry Smoothie 450 ML BTL PO (08:46)
[2025-04-24] MEDS: Barium Sulfate 2% W/V-Creamy Vanilla Smoothie 450 ML BTL PO (08:46)
[2025-04-24] MEDS: Normal Saline Flush 10 ML SYR IVP (10:53)
[2025-04-24] MEDS: Normal Saline - Diluent 50 ML VIAL IJ (10:53)
[2025-04-24] MEDS: Omnipaque 350 MG/ML 500 ML BTL-Imaging package IJ (10:53)
--- NOTE | 2025-04-24 11:10 | DI.CT_ITS ---
Exam(s) CT CHEST/ABD/PEL W EXAM: CT CHEST/ABD/PEL W CLINICAL HISTORY: HIATAL HERNIA,K44.9,SURGICAL PLANNING TECHNIQUE: Imaging Protocol: Axial computed tomography images with coronal and sagittal reformatted images were created and reviewed. Lung Computer Aided Detection (CAD) was utilized. CONTRAST MATERIAL: Intravenous: Omnipaque 350 contrast volume:75 mL Oral: Yes COMPARISON: There are no priors for comparison. FINDINGS: CHEST: Tracheobronchial tree: Patent where visualized. No evidence of bronchiectasis. Pulmonary parenchyma: No consolidation or dominant measurable mass. There are few tiny pulmonary nodules. The largest measures 3 mm and is located in the right upper lobe (series 10, image 40). Visualized thyroid gland: Unremarkable. Mediastinum and Aletha: No dominant adenopathy or fluid collection. The esophagus is unremarkable. Pleura: No effusion or pneumothorax. Heart: The heart is not dilated. No coronary artery calcifications are seen. No pericardial effusion. Pulmonary arteries: There is no evidence of a pulmonary embolism to the segmental level. Aorta: Thoracic aorta non-dilated. Mild atherosclerotic calcification is present. Lymph nodes: Within normal limits. Soft tissues: Unremarkable. Bones:Within normal limits for the patient's age. ABDOMEN: Liver: Normal density. No measurable mass. Portal, Superior Mesenteric, and Splenic Veins: Unremarkable. Gallbladder and Biliary Tract: Status post cholecystectomy. The common duct measures 1 cm in diameter which is likely reflective of the post cholecystectomy state. Pancreas: Normal density, no abnormal calcifications or inflammatory process. Spleen: Normal. Adrenals: No masses seen. Kidneys: Normal size, contour and axis. Left nephrolithiasis. No obstructive uropathy. No masses seen. Abdominal Aorta: Abdominal portion non-dilated. Bowel: No obstruction or bowel wall thickening. Appendix is unremarkable. Peritoneal Cavity: No ascites, collection or mesenteric inflammatory response. No free air. Lymph Nodes: Within normal limits. Bones: Within normal limits for the patient's age. Soft Tissues: There is a small fat containing umbilical hernia. PELVIS: Bladder: Symmetric distention, no gross wall thickening. Reproductive Organs: There is a 3.6 x 3 cm left ovarian cyst. Lymph Nodes: Within normal limits. Bones: Within normal limits. IMPRESSION: 1. 3 mm right upper lobe pulmonary nodule. Solid nodules smaller than 6 mm do not require routine follow-up in all patients with high clinical risk; however, some nodules smaller than 6 mm with suspicious morphology, upper lobe location, or both may warrant follow-up at 12 months (grade 2A; weak recommendation, high-quality evidence). (Stewart et al., 2017) Single solid noncalcified nodules. ???Solid nodules smaller than 6 mm (those 5 mm or smaller) do not require routine follow-up in patients at low risk (grade 1C; strong recommendation, low- or [id number] evidence). (Stewart et al., 2017) 2. There is no acute pulmonary process. 3. No evidence of a hiatal hernia. 4. There is no acute abdominal or pelvic process. 5. 3.6 x 3 cm left ovarian cyst. Follow-up as clinically appropriate. This may include a repeat pelvic ultrasound in 6 8 weeks. Unexpected findings RADIATION DOSE DELIVERED: 278.86mGy.cm Total DLP DATA REPOSITORY: All CT scans at this facility are submitted to the National Radiology Data Registry (NRDR) Dose Index Registry (DIR) with the [employer] ([employer]). RADIATION OPTIMIZATION: All CT scans at this facility use at least one of these dose optimization techniques: automated exposure control; mA and/or kV adjustment per patient size (includes targeted exams where dose is matched to clinical indication); or iterative reconstruction.
== END ==
LOC: DI 03:51
PROVIDERS: PCP Family Medicine; Visit Provider Student in an Organized Health Care Education/Training Program
DX: K44.9 Diaphragmatic hernia without obstruction or gangrene (principal); N83.202 Unspecified ovarian cyst, left side
CPT/HCPCS: 74177; 71260

== ENCOUNTER → 2025-05-08 00:19 | Outpatient (CLI) | payer OTHER, SELFPAY ==
[2025-05-08] MEDS: Barium Sulfate 700 MG TAB PO (11:30)
[2025-05-08] MEDS: Barium Sulfate 98% W/W 140 ML BTL PO (11:31)
[2025-05-08] MEDS: Barium Sulfate 60% W/V 355 ML BTL 300 ML PO (11:32)
--- NOTE | 2025-05-08 11:33 | DI.RAD_ITS ---
Exam(s) RF BARIUM SWALLOW SINGLE EXAM: RF BARIUM SWALLOW SINGLE CLINICAL HISTORY: HIATAL HERNIA,EVALUATE FOR SURGICAL PLANNING,K44.9 TECHNIQUE: 2D and realtime digital imaging was performed. CONTRAST MATERIAL: Oral barium contrast was administered. COMPARISON: CR RIGHT RIBS TO INCLUDE CXR from 01/21/2015 FINDINGS: CHEST X-RAY: The heart and pulmonary vasculature are within normal limits. The lungs are clear. No pleural effusion or pneumothorax is present. The bones are within normal limits for the patient's age. ESOPHAGRAM: The esophagus is patent with no evidence for erosions, fold thickening, strictures, or masses. With regards to the motility, there is a normal primary stripping wave. No tertiary contractions were noted. There is a small hiatal hernia noted during the examination. This is best appreciated on series 11. There is no gastroesophageal reflux. IMPRESSION: There is a small hiatal hernia noted during the examination. RADIATION DOSE DELIVERED: jazmin Alejandro=14.6 mGy
== END ==
LOC: DI 00:19
PROVIDERS: PCP Family Medicine; Visit Provider Student in an Organized Health Care Education/Training Program
DX: K44.9 Diaphragmatic hernia without obstruction or gangrene (principal)
CPT/HCPCS: 74220; J3490